=== PATIENT | female | born 1990 | race Caucasian/White ===

== ENCOUNTER → 2016-11-24 | Outpatient (CLI) | payer OTHER ==
[~2016-11-24] MED LIST: SYNTHROID
--- NOTE | ~2016-11-24 | US5 ---
[facility] A Service of [facility] & [facility] RADIOLOGY TEXT RESULTS PATIENT: WARREN VERMA LOCATION: [facility] : [birth year] UNIT #: [id number] AGE: [address]: Will Calvin MD SEX: F ORDER DR: [id number] [address] [address] [id number] O MR#: [id number] Acc #: [id number] NAME: WARREN VERMA : 1990 SEX: F STUDY DATE/TIME: 11/24/2016 9:23 UNIT: [facility] ROOM: STUDY DESCRIPTION: US Abdominal Complete Attending Physician: Will Calvin M.D. Referring Physician: Will Calvin M.D. Ordering Physician: Will Calvin M.D. Primary Care Physician: Will Calvin M.D. MEDICAL IMAGING REPORT This report is preliminary unless electronic signature is present. EXAM Abdominal ultrasound INDICATION Right upper quadrant pain for 2-3 weeks. Nausea for 3 weeks. TECHNIQUE Gallardo-scale, color Doppler and spectral Doppler waveform analysis was performed through the abdomen. FINDINGS There is suboptimal visualization of the pancreas. The liver appears homogeneous in echotexture but does appear enlarged measuring up to about 18.0 cm in sagittal dimensions. No intra or extrahepatic biliary dilatation is seen and no focal hepatic lesions are identified. Main portal vein is patent with hepatopetal flow. Both kidneys are normal in appearance with no solid or cystic renal masses seen and no hydronephrosis identified. Spleen measures within normal size limits. Abdominal aorta also measures within normal size limits. On initial study patient had a structure labeled as the gallbladder. I am not convinced that was actually the gallbladder. It may have actually been a segment of bowel given the presence of fairly extensive shadowing. The patient was subsequently brought back for additional images which appear to show a contracted gallbladder which is poorly assessed on this examination. The presence of some sludge within the gallbladder certainly cannot be excluded on the basis of this study. No obvious shadowing stones are seen. IMPRESSION 1. Extremely technically limited examination for evaluation of the gallbladder. On initial images structure marked as the gallbladder may have actually been bowel. On the subsequent callback images the gallbladder is very contracted and is difficult to fully assess. 2. Hepatome[address]aly. [facility] A Service of [facility] & [facility] RADIOLOGY TEXT RESULTS PATIENT: WARREN VERMA LOCATION: [facility] : [birth year] UNIT #: [id number] AGE: [address]: Will Calvin MD SEX: F ORDER DR: 1. Dictated by... Helen Torres M.D. THIS IS AN ELECTRONICALLY VERIFIED REPORT Helen Torres M.D. at 11/27/2016 4:55 PM MEHRDAD/renzo TD: 11/27/2016 12:15 JOB #: [id number] MEDICAL IMAGING REPORT Page 1 of 1
== END | disposition home or self-care (01) ==
LOC: SGUS 08:59
DX: R10.11 Right upper quadrant pain (principal); R11.0 Nausea; R16.0 Hepatomegaly, not elsewhere classified
CPT/HCPCS: 76700

== ENCOUNTER → 2016-12-11 | Outpatient (CLI) | payer OTHER ==
--- NOTE | ~2016-12-11 | NM22 ---
[facility] A Service of [facility] & [facility] RADIOLOGY TEXT RESULTS PATIENT: WARREN VERMA LOCATION: CN : [birth year] UNIT #: [id number] AGE: [address]: LORI MUÑOZ APRN SEX: F ORDER DR: [id number] [facility] [address] [place], [place] [address] [id number] O MR#: [id number] Acc #: [id number] NAME: WARREN VERMA : 1990 SEX: F STUDY DATE/TIME: 12/11/2016 8:13 UNIT: [facility] ROOM: STUDY DESCRIPTION: [place] Hepatobiliary W GB Pharm Attending Physician: Lori Muñoz Aprn Referring Physician: Lori Muñoz Aprn Ordering Physician: Lori Muñoz Aprn Primary Care Physician: Will Calvin M.D. MEDICAL IMAGING REPORT This report is preliminary unless electronic signature is present EXAM Hepatobiliary scan, 12/11 INDICATIONS Attacks of pain that start in her back and radiate to the chest and epigastric region, with some shortness of air and nausea. Patient also reports bloating and constipation. Symptoms for about 2 months. FINDINGS Imaging was obtained of the abdomen for 60 minutes after the IV administration of 6 mCi of technetium 99m - Choletec. Comparison made with gallbladder ultrasound from 11/24/2016. There is prompt uptake by the liver, with gallbladder activity seen within 15 minutes. Small bowel activity is seen within 60 minutes. There is no evidence of acute cholecystitis or biliary obstruction. Following the IV administration of 1.5 mcg of Kinevac, gallbladder ejection fraction is normal at 75.1%. IMPRESSION Normal hepatobiliary scan. Normal gallbladder ejection fraction of 75.1% after Kinevac stimulation. Dictated by... Anuj Dickens Jr., M.D. THIS IS AN ELECTRONICALLY VERIFIED REPORT Anuj Dickens Jr., M.D. at 12/12/2016 7:35 PM RLK/david TD: 12/11/2016 22:23 JOB #: [id number] MEDICAL IMAGING REPORT [facility]. [facility] A Service of [facility] & [facility] RADIOLOGY TEXT RESULTS PATIENT: WARREN VERMA LOCATION: [facility] : [birth year] UNIT #: [id number] AGE: [address]: LORI MUÑOZ AUTO MACHINIST SEX: F ORDER DR: Page 1 of 1 COPY
== END | disposition home or self-care (01) ==
LOC: CNUC 07:39
DX: R10.11 Right upper quadrant pain (principal); R10.13 Epigastric pain
CPT/HCPCS: 78227; A9537; J2805